=== PATIENT | female | born 1935 | race Caucasian/White ===

== ENCOUNTER 2017-09-30 20:02 | Emergency (ER) | payer OTHER ==
[~2017-09-30] VITALS: Ht 149.9 cm; Wt 58.1 kg
[2017-09-30 20:06] VITALS: BP 150/114
== END 2017-09-30 21:01 | disposition left against medical advice (07) ==
LOC: ER 20:02
DX: R05 Cough (principal); J00 Acute nasopharyngitis [common cold]; Z53.21 Procedure and treatment not carried out due to patient leaving prior to being seen by health care provider